=== PATIENT | female | born 1965 | race Caucasian/White ===

== ENCOUNTER → 2016-06-29 | Outpatient (CLI) | payer OTHER ==
[~2016-06-29] MED LIST: LORTAB 7.5-3251 EACH PO; NORCO 7.5-3251 EACH PO; OMEPRAZOLE40 MG PO; PEPCID20 MG PO; VITAMIN D350000 UNIT PO
[2016-06-29 13:38] LABS: HEMOGLOBIN 14.8 gm/dl (12.3-15.3); RED BLOOD COUNT 5.07 M/UL (4.00-5.10); WHITE BLOOD COUNT 9.8 K/UL (4.5-11.0)
[2016-06-29 14:01] LABS: BUN/CREATININE RATIO 8 (0-10)
== END ==
LOC: LAB 13:15
PROVIDERS: Family Medicine
DX: R10.11 Right upper quadrant pain (principal)
CPT/HCPCS: 36415; 80053; 82150; 83690; 85025

== ENCOUNTER → 2016-06-30 | Outpatient (CLI) | payer OTHER | LOC: KOH-I 07:53 | DX: R10.11 Right upper quadrant pain (principal); K76.0 Fatty (change of) liver, not elsewhere classified | CPT/HCPCS: 76705 ==

== ENCOUNTER 2016-07-03 22:22 | Emergency (ER) | payer OTHER ==
[2016-07-04 00:23] LABS: HEMOGLOBIN 13.6 gm/dl (12.3-15.3); RED BLOOD COUNT 4.69 M/UL (4.00-5.10); WHITE BLOOD COUNT 10.4 K/UL (4.5-11.0)
[2016-07-04 00:42] LABS: BUN/CREATININE RATIO 8 (0-10)
[2016-07-19] MEDS ORDERED: VITAMIN D350000 UNIT PO (09:12)
[2016-07-19] MEDS ORDERED: LORTAB 7.5-3251 EACH PO (09:12)
[2016-07-19] MEDS ORDERED: PEPCID20 MG PO (09:13)
[2016-07-19] MEDS ORDERED: OMEPRAZOLE40 MG PO (09:13)
[2016-07-19] MEDS ORDERED: NORCO 7.5-3251 EACH PO (13:21)
== END 2016-07-04 04:42 | disposition home or self-care (01) ==
LOC: ER1 22:22
PROVIDERS: Student in an Organized Health Care Education/Training Program
DX: R10.11 Right upper quadrant pain (principal); R11.0 Nausea; F17.210 Nicotine dependence, cigarettes, uncomplicated; Z90.710 Acquired absence of both cervix and uterus; Z95.9 Presence of cardiac and vascular implant and graft, unspecified; Z88.1 Allergy status to other antibiotic agents; Z88.8 Allergy status to other drugs, medicaments and biological substances; Z91.018 Allergy to other foods
CPT/HCPCS: 36415; 71020; 80053; 82550; 82553; 83690; 83874; 84484; 85025; 93005; 96365; 96375; 99284; J2270; J2405

== ENCOUNTER → 2016-07-06 | Outpatient (CLI) | payer OTHER | LOC: NM 11:34 | DX: R10.11 Right upper quadrant pain (principal); K76.0 Fatty (change of) liver, not elsewhere classified; R93.2 Abnormal findings on diagnostic imaging of liver and biliary tract | CPT/HCPCS: 78227; A9537; J2805 ==

== ENCOUNTER → 2016-07-19 | Day surgery (SDC) | payer OTHER | END | disposition home or self-care (01) | LOC: OR 08:13 | PROVIDERS: Surgery | PROC: 0FT44ZZ Resection of Gallbladder, Percutaneous Endoscopic Approach (ICD-10-PCS; principal; 2016-07-19 11:15) | DX: K81.1 Chronic cholecystitis (principal); E78.5 Hyperlipidemia, unspecified; E55.9 Vitamin D deficiency, unspecified; F17.210 Nicotine dependence, cigarettes, uncomplicated; Z88.6 Allergy status to analgesic agent; Z88.1 Allergy status to other antibiotic agents; Z88.8 Allergy status to other drugs, medicaments and biological substances; Z86.008 Personal history of in-situ neoplasm of other site; Z98.51 Tubal ligation status | CPT/HCPCS: J0295; J1100; J1885; J2250; J2405; J2710; J2765; J3010; J7030; J7050; J7120 ==